=== PATIENT | female | born 1990 | race American Indian/Alaskan Native ===

== ENCOUNTER 2016-11-02 10:37 | Emergency (ER) | payer BC ==
[2016-11-02 11:32] LABS: Basophils % (Auto) 0.4 % (0.0-1.8); Eosinophils % (Auto) 0.9 % (0.0-4.3); Hematocrit 35.2 % (30.3-42.9); Hemoglobin 11.8 gm/dl (10.1-14.3); Mean Corpuscular HGB Conc 33 % (30-34); Mean Corpuscular Hemoglobin 31 pg (28-32); Mean Corpuscular Volume 93 fl (79-97); Platelet Count 231 K/mm3 (140-440); Red Blood Count 3.78 M/mm3 (3.65-5.03); Red Cell Distribution Width 13.4 % (13.2-15.2); White Blood Count 7.9 K/mm3 (4.5-11.0)
[2016-11-02 11:41] LABS: INR 1.05 (0.87-1.13)
[2016-11-02 11:42] LABS: Partial Thromboplastin Time 26.3 Sec. (24.2-36.6)
[2016-11-02 12:09] LABS: Alanine Aminotransferase 6 units/L (7-56); Albumin 3.3 g/dL (3.9-5); Alkaline Phosphatase 42 units/L (35-129); Bilirubin,Direct < 0.2 mg/dL (0-0.2); Total Protein 6.7 g/dL (6.3-8.2)
[2016-11-02 12:12] LABS: Anion Gap 17 mmol/L; Blood Urea Nitrogen 8 mg/dL (7-17); Calcium 8.6 mg/dL (8.4-10.2); Carbon Dioxide 22 mmol/L (22-30); Glucose 75 mg/dL (65-100); Potassium 3.9 mmol/L (3.6-5.0); Sodium 139 mmol/L (137-145)
[2016-11-02 12:33] LABS: Urine Drugs of Abuse Note Disclamer
[2016-11-02 13:07] LABS: Bacteria,Urine 1+ /HPF (Negative); Bilirubin,Urine NEG (Negative); Blood,Urine NEG (Negative); Ketones,Urine NEG (Negative); Leukocyte Esterase,Urine SM (Negative); Mucus,Urine FEW /HPF; Nitrite,Urine NEG (Negative); Protein,Urine <15 mg/dL mg/dL (Negative); Urobilinogen,Urine < 2.0 mg/dL (<2.0)
[2016-11-02] MEDS ORDERED: NACL 0.9% 500 ML 500 ML IV ONE (17:30)
--- NOTE | 2016-11-02 17:30 | Emergency Department Report ---
ED General Adult HPI - General Chief complaint: Syncope Stated complaint: LOW BP Time Seen by Provider: 11/02/16 17:17 Source: patient, RN notes reviewed Mode of arrival: Ambulatory Limitations: No Limitations - History of Present Illness Initial comments: This is a 25-year-old female. She is previously known to me. She is 2 , para 1. Last menstrual period is May 25. She reports that her TISSUE REWINDER is at the [facility]. She does not currently have a high risk specialist. She reports that she was seeing a local high risk group up until last month, but transitioned her care to the [facility]. She does not recall the name of the group that she was seen. Past medical history includes DVT and the right lower extremity, and lupus. She reports that she has not been on Lovenox for 3 years. The patient presents to the ER complaining of syncope. She reports that she was at work today, and eat a full breakfast. She reports that she felt lightheaded, and then passed out. Prior to the incident, she did not have chest pain or shortness of breath, she did not have abdominal pain, and she denied sudden, severe, or thunderclap headache. She reports that she had a "whooshing" sensation in her bilateral upper and lower extremities, and a mild throbbing headache. The headache is not sudden or thunderclap in nature. Did not reach maximal intensity within an hour. It is not the worst headache of her life. It has since resolved. The patient denies irritative and obstructive urinary symptoms, and abdominal pain. -: Sudden Severity scale (0 -10): 0 Consistency: now resolved Improves with: none Worsens with: none Associated Symptoms: syncope - Related Data Home Medications Medication Instructions Recorded Confirmed Last Taken Multivitamin W/Iron, Minerals 11/02/16 Unknown Previous Rx's Medication Instructions Recorded Last Taken Type Doxylamine/Pyridoxine HCl 1 each PO QHS PRN #30 tablet. 11/02/16 Unknown Rx [Tiff Ruiz 10-10 mg Tablet] Vit W-Ca,Fe,FA(<1 mg) 1 each PO QDAY #30 tablet 11/02/16 Unknown Rx [ Vitamins] Allergies Allergy/AdvReac Type Severity Reaction Status Date / Time No Known Allergies Allergy Unverified 09/14/15 11:00 ED Review of Systems ROS: Stated complaint: LOW BP Other details as noted in HPI Constitutional: denies: fever Eyes: denies: vision change ENT: denies: epistaxis Respiratory: denies: cough Cardiovascular: syncope Gastrointestinal: denies: abdominal pain Genitourinary: as per HPI Musculoskeletal: as per HPI Skin: as per HPI Neurological: denies: weakness, confusion, abnormal gait, vertigo Psychiatric: anxiety ED Past Medical Hx - Past Medical History Previous Medical History?: Yes Hx Deep Vein Thrombosis: Yes (Right leg) Additional medical history: Lupus, Vaginal delivery 03-04-2013 - Surgical History Past Surgical History?: No - Social History Smoking Status: Unknown if ever smoked Substance Use Type: None - Medications Home Medications: Home Medications Medication Instructions Recorded Confirmed Last Taken Type Doxylamine/Pyridoxine HCl 1 each PO QHS PRN #30 tablet. 11/02/16 Unknown Rx [Tiff Ruiz 10-10 mg Tablet] Multivitamin W/Iron, Minerals 11/02/16 Unknown History Vit W-Ca,Fe,FA(<1 mg) 1 each PO QDAY #30 tablet 11/02/16 Unknown Rx [ Vitamins] ED Physical Exam - General Limitations: No Limitations General appearance: alert, in no apparent distress - Head Head exam: Present: atraumatic, normocephalic - Eye Eye exam: Present: normal appearance, PERRL, EOMI, other (visual acuity intact to finger counting, color perception, reading at a close distance). Absent: nystagmus - ENT ENT exam: Present: normal exam, normal orophraynx, mucous membranes moist, normal external ear exam - Neck Neck exam: Present: normal inspection, full ROM. Absent: tenderness, meningismus - Respiratory Respiratory exam: Present: normal lung sounds bilaterally. Absent: respiratory distress, wheezes, rales, rhonchi, stridor, chest wall tenderness, accessory muscle use, decreased breath sounds, prolonged expiratory - Cardiovascular Cardiovascular Exam: Present: regular rate, normal rhythm, normal heart sounds. Absent: bradycardia, tachycardia, irregular rhythm, systolic murmur, diastolic murmur, rubs, gallop - GI/Abdominal GI/Abdominal exam: Present: soft, normal bowel sounds, other (gravid uterus is appreciated, and is consistent with dates. It is nontender.). Absent: distended, tenderness, guarding, rebound, rigid, pulsatile mass - Extremities Exam Extremities exam: Present: normal inspection, full ROM, normal capillary refill. Absent: tenderness, pedal edema, joint swelling, calf tenderness - Back Exam Back exam: Present: normal inspection, full ROM. Absent: tenderness, CVA tenderness (R), CVA tenderness (L), muscle spasm, paraspinal tenderness, vertebral tenderness - Neurological Exam Neurological exam: Present: alert, oriented X3, normal gait (normal gait. Normal tandem gait. Negative [id number]-[id number]. Negative Romberg examination. No past pointing.), other (Extraocular movements intact. Tongue midline. No facial droop. Facial sensation intact to light touch in the V1, V2, V3 distribution bilaterally. 5 and 5 strength in 4 extremities.. Sensation is intact to light touch in 4 extremities.). Absent: motor sensory deficit - Psychiatric Psychiatric exam: Present: normal affect, normal mood - Skin Skin exam: Present: warm, dry, intact, normal color. Absent: rash ED Course Vital Signs 11/02/16 11/02/16 11/02/16 11:02 16:29 18:43 Temperature 98.1 F 98.6 F 98.7 F Pulse Rate 84 82 102 H Respiratory 18 18 20 Rate Blood Pressure 105/61 Blood Pressure 96/58 96/52 [Left] O2 Sat by Pulse 100 99 99 Oximetry - Reevaluation(s) Reevaluation #1: 11/02/16 18:29 Differential diagnosis: Dehydration, vagal event, placental bleed, arrhythmia, structural cardiac disease, acute coronary syndrome, pulmonary embolus Assessment and plan: 25-year-old female with lupus, history of DVT, not currently followed by high risk maternal- medicine, with episode of unprovoked syncope. She is afebrile with reassuring vital signs, has a GCS of 15, with an NIH score of 0. Her neurologic examination is unremarkable, and by history, I think venous sinus thrombosis is very unlikely. A d-dimer sent prior to my evaluation, and it comes back elevated. Extensive discussion had with the patient and family regarding various options for working up pulmonary embolus. At this time, the vascular lab is not available to perform a lower extremity DVT, so through informed consent and shared decision making, the patient opted for CT angiogram of the chest versus a V/Q study of the lungs. The risks, benefits, alternatives were discussed with the patient and she verbalized understanding. The patient is low risk by CARMELINA score, and low risk by heart score. Troponins are negative 2, EKG is morphologically within normal limits 2. CT angiogram interpretation is pending, and obstetrics ultrasound is pending. The case was discussed with the section gang worker on-call, Dr. García, who indicated he would be happy to see the patient as an outpatient for follow-up, assuming no pulmonary embolus is identified on her workup today. Reevaluation #2: 11/02/16 19:23 no further episodes of syncope. Patient has remained hemodynamically stable. Skin negative. Ultrasound within normal limits. Patient will be discharged with instructions to follow up with outpatient cardiology, outpatient TISSUE REWINDER and high risk maternal- medicine. ED Medical Decision Making - Lab Data Result diagrams: 11/02/16 11:14 11/02/16 11:14 Vital Signs 11/02/16 11/02/16 11:02 16:29 Temperature 98.1 F 98.6 F Pulse Rate 84 82 Respiratory 18 18 Rate Blood Pressure 105/61 Blood Pressure 96/58 [Left] O2 Sat by Pulse 100 99 Oximetry Lab Results 11/02/16 11/02/16 11/02/16 Range/Units 11:14 11:14 11:14 WBC 7.9 (4.5-11.0) K/mm3 RBC 3.78 (3.65-5.03) M/mm3 Hgb 11.8 (10.1-14.3) gm/dl Hct 35.2 (30.3-42.9) % MCV 93 (79-97) fl MCH 31 (28-32) pg MCHC 33 (30-34) % RDW 13.4 (13.2-15.2) % Plt Count 231 (140-440) K/mm3 Lymph % (Auto) 20.3 (13.4-35.0) % [place] % (Auto) 7.2 (0.0-7.3) % Eos % (Auto) 0.9 (0.0-4.3) % Baso % (Auto) 0.4 (0.0-1.8) % Lymph # 1.6 (1.2-5.4) K/mm3 [place] # 0.6 (0.0-0.8) K/mm3 Eos # 0.1 (0.0-0.4) K/mm3 Baso # 0.0 (0.0-0.1) K/mm3 Seg Neutrophils % 71.2 H (40.0-70.0) % Seg Neutrophils # 5.7 (1.8-7.7) K/mm3 PT 14.2 (12.2-14.9) Sec. INR 1.05 (0.87-1.13) APTT 26.3 (24.2-36.6) Sec. D-Dimer 246.68 H (0-234) ng/mlDDU Sodium 139 (137-145) mmol/L Potassium 3.9 (3.6-5.0) mmol/L Chloride 104.0 (98-107) mmol/L Carbon Dioxide 22 (22-30) mmol/L Anion Gap 17 mmol/L BUN 8 (7-17) mg/dL Creatinine 0.4 L (0.7-1.2) mg/dL Estimated GFR > 60 ml/min BUN/Creatinine Ratio 20.00 % Glucose 75 (65-100) mg/dL Calcium 8.6 (8.4-10.2) mg/dL Total Bilirubin (0.1-1.2) mg/dL Direct Bilirubin (0-0.2) mg/dL AST (5-40) units/L ALT (7-56) units/L Alkaline Phosphatase (35-129) units/L Troponin T < 0.010 (0.00-0.029) ng/mL Total Protein (6.3-8.2) g/dL Albumin (3.9-5) g/dL Albumin/Globulin Ratio % Urine Color (Yellow) Urine Turbidity (Clear) Urine pH (5.0-7.0) Ur Specific [place] (1.003-1.030) Urine Protein (Negative) mg/dL Urine Glucose (UA) (Negative) mg/dL Urine Ketones (Negative) mg/dL Urine Blood (Negative) Urine Nitrite (Negative) Urine Bilirubin (Negative) Urine Urobilinogen (<2.0) mg/dL Ur Leukocyte Esterase (Negative) Urine WBC (Auto) (0.0-6.0) /HPF Urine RBC (Auto) (0.0-6.0) /HPF U Epithel Cells (Auto) (0-13.0) /HPF Urine Bacteria (Auto) (Negative) /HPF Urine Mucus /HPF Urine Opiates Screen Urine Methadone Screen Ur Barbiturates Screen Ur Phencyclidine Scrn Ur Amphetamines Screen U Benzodiazepines Scrn Urine Cocaine Screen U Marijuana (THC) Screen Drugs of Abuse Note 11/02/16 11/02/16 11/02/16 Range/Units 11:14 11:50 11:51 WBC (4.5-11.0) K/mm3 RBC (3.65-5.03) M/mm3 Hgb (10.1-14.3) gm/dl Hct (30.3-42.9) % MCV (79-97) fl MCH (28-32) pg MCHC (30-34) % RDW (13.2-15.2) % Plt Count (140-440) K/mm3 Lymph % (Auto) (13.4-35.0) % [place] % (Auto) (0.0-7.3) % Eos % (Auto) (0.0-4.3) % Baso % (Auto) (0.0-1.8) % Lymph # (1.2-5.4) K/mm3 [place] # (0.0-0.8) K/mm3 Eos # (0.0-0.4) K/mm3 Baso # (0.0-0.1) K/mm3 Seg Neutrophils % (40.0-70.0) % Seg Neutrophils # (1.8-7.7) K/mm3 PT (12.2-14.9) Sec. INR (0.87-1.13) APTT (24.2-36.6) Sec. D-Dimer (0-234) ng/mlDDU Sodium (137-145) mmol/L Potassium (3.6-5.0) mmol/L Chloride (98-107) mmol/L Carbon Dioxide (22-30) mmol/L Anion Gap mmol/L BUN (7-17) mg/dL Creatinine (0.7-1.2) mg/dL Estimated GFR ml/min BUN/Creatinine Ratio % Glucose (65-100) mg/dL Calcium (8.4-10.2) mg/dL Total Bilirubin 0.20 (0.1-1.2) mg/dL Direct Bilirubin < 0.2 (0-0.2) mg/dL AST 9 (5-40) units/L ALT 6 L (7-56) units/L Alkaline Phosphatase 42 (35-129) units/L Troponin T (0.00-0.029) ng/mL Total Protein 6.7 (6.3-8.2) g/dL Albumin 3.3 L (3.9-5) g/dL Albumin/Globulin Ratio 1.0 % Urine Color Yellow (Yellow) Urine Turbidity Cloudy (Clear) Urine pH 7.0 (5.0-7.0) Ur Specific [place] 1.015 (1.003-1.030) Urine Protein <15 mg/dl (Negative) mg/dL Urine Glucose (UA) Neg (Negative) mg/dL Urine Ketones Neg (Negative) mg/dL Urine Blood Neg (Negative) Urine Nitrite Neg (Negative) Urine Bilirubin Neg (Negative) Urine Urobilinogen < 2.0 (<2.0) mg/dL Ur Leukocyte Esterase Sm (Negative) Urine WBC (Auto) 5.0 (0.0-6.0) /HPF Urine RBC (Auto) 4.0 (0.0-6.0) /HPF U Epithel Cells (Auto) 27.0 H (0-13.0) /HPF Urine Bacteria (Auto) 1+ (Negative) /HPF Urine Mucus Few /HPF Urine Opiates Screen Presumptive negative Urine Methadone Screen Presumptive negative Ur Barbiturates Screen Presumptive negative Ur Phencyclidine Scrn Presumptive negative Ur Amphetamines Screen Presumptive negative U Benzodiazepines Scrn Presumptive negative Urine Cocaine Screen Presumptive negative U Marijuana (THC) Screen Presumptive negative Drugs of Abuse Note Disclamer 11/02/16 Range/Units 17:43 WBC (4.5-11.0) K/mm3 RBC (3.65-5.03) M/mm3 Hgb (10.1-14.3) gm/dl Hct (30.3-42.9) % MCV (79-97) fl MCH (28-32) pg MCHC (30-34) % RDW (13.2-15.2) % Plt Count (140-440) K/mm3 Lymph % (Auto) (13.4-35.0) % [place] % (Auto) (0.0-7.3) % Eos % (Auto) (0.0-4.3) % Baso % (Auto) (0.0-1.8) % Lymph # (1.2-5.4) K/mm3 [place] # (0.0-0.8) K/mm3 Eos # (0.0-0.4) K/mm3 Baso # (0.0-0.1) K/mm3 Seg Neutrophils % (40.0-70.0) % Seg Neutrophils # (1.8-7.7) K/mm3 PT (12.2-14.9) Sec. INR (0.87-1.13) APTT (24.2-36.6) Sec. D-Dimer (0-234) ng/mlDDU Sodium (137-145) mmol/L Potassium (3.6-5.0) mmol/L Chloride (98-107) mmol/L Carbon Dioxide (22-30) mmol/L Anion Gap mmol/L BUN (7-17) mg/dL Creatinine (0.7-1.2) mg/dL Estimated GFR ml/min BUN/Creatinine Ratio % Glucose (65-100) mg/dL Calcium (8.4-10.2) mg/dL Total Bilirubin (0.1-1.2) mg/dL Direct Bilirubin (0-0.2) mg/dL AST (5-40) units/L ALT (7-56) units/L Alkaline Phosphatase (35-129) units/L Troponin T < 0.010 (0.00-0.029) ng/mL Total Protein (6.3-8.2) g/dL Albumin (3.9-5) g/dL Albumin/Globulin Ratio % Urine Color (Yellow) Urine Turbidity (Clear) Urine pH (5.0-7.0) Ur Specific [place] (1.003-1.030) Urine Protein (Negative) mg/dL Urine Glucose (UA) (Negative) mg/dL Urine Ketones (Negative) mg/dL Urine Blood (Negative) Urine Nitrite (Negative) Urine Bilirubin (Negative) Urine Urobilinogen (<2.0) mg/dL Ur Leukocyte Esterase (Negative) Urine WBC (Auto) (0.0-6.0) /HPF Urine RBC (Auto) (0.0-6.0) /HPF U Epithel Cells (Auto) (0-13.0) /HPF Urine Bacteria (Auto) (Negative) /HPF Urine Mucus /HPF Urine Opiates Screen Urine Methadone Screen Ur Barbiturates Screen Ur Phencyclidine Scrn Ur Amphetamines Screen U Benzodiazepines Scrn Urine Cocaine Screen U Marijuana (THC) Screen Drugs of Abuse Note - EKG Data -: EKG Interpreted by Me EKG shows normal: sinus rhythm, axis, intervals, QRS complexes, ST-T waves - EKG Data When compared to previous EKG there are: previous EKG unavailable EKG #1 demonstrates normal sinus, 76 bpm, normal intervals, normal axis, persistent juvenile T-wave inversion in V2, not morphologically consistent with STEMI. EKG #2 demonstrates normal sinus, 76 bpm, normal intervals, normal axis, not morphologically consistent with STEMI. epsilon waves are not noted, right bundle branch block is not noted, T-wave inversions V1, V2, V3 consecutively not noted. 11/02/16 18:32 11/02/16 18:37 - Radiology Data Radiology results: pending, report reviewed, image reviewed CT scan of the chest is negative for pulmonary embolus. Ultrasound demonstrates a 23-week-old , no obvious bleeding. Critical care attestation.: If time is entered above; I have spent that time in minutes in the direct care of this critically ill patient, excluding procedure time. ED Disposition Clinical Impression: Syncope, Disposition: DC-01 TO HOME OR SELFCARE Is pt being admited?: No Does the pt Need Aspirin: No Condition: Stable Instructions: Syncope (ED) Additional Instructions: Follow up with the section gang worker, Dr. García, within the next 3-5 days. Contact his office to arrange close outpatient follow-up. I recommended not driving a car or operating motor vehicles until cardiology clears you to do so. Continue current outpatient medications, take the nausea medication as needed, take the vitamins as directed. Follow up with an TISSUE REWINDER doctor and high risk specialist as soon as possible. Dr. Argueta is a local TISSUE REWINDER doctor. For your convenience, I have listed numerous names, phone numbers, addresses of local high risk specialist. Return to the ER right away with new pain, worsened pain, migration of pain, fevers, chills, intractable nausea or vomiting, confusion, inability to tolerate liquid feeds, vaginal bleeding. Prescriptions: Doxylamine/Pyridoxine HCl [Tiff Ruiz 10-10 mg Tablet] 1 each PO QHS PRN #[address] tablet.dr [place]TON Reason: Nausea Vit W-Ca,Fe,FA(<1 mg) [ Vitamins] 1 each PO QDAY #30 tablet Referrals: PRIMARY CARE, [Primary Care Provider] - 3-5 Days ADOLFO PROCTOR MD [Staff Physician] - 3-5 Days ISIDRA NORTH MD [Staff Physician] - 3-5 Days GALLITO VELOZ MD [Staff Physician] - 3-5 Days MADISON CREWS MD [Staff Physician] - 3-5 Days ANDRE POLLACK MD [Staff Physician] - 3-5 Days
[2016-11-02 18:48] VITALS: BP 96/52
--- NOTE | 2016-11-02 18:52 | Cat Scan Report ---
FINAL REPORT EXAM: CT ANGIO CHEST HISTORY: with syncope TECHNIQUE: CT chest CT angiogram with reconstructions PRIORS: None. FINDINGS: There is no evidence of filling defect within the central pulmonary vasculature to suggest the presence of acute pulmonary embolus. No evidence of mediastinal pathologic lymph node enlargement. Residual thymic tissue noted anterior mediastinum. Heart and great vessels are unremarkable. The aorta is normal in caliber. No focal pulmonary infiltrate identified. No pleural fluid collection seen. No acute pulmonary abnormality noted. Visualized portion of the upper abdomen demonstrates no acute change. IMPRESSION: Negative. No CT evidence of acute pulmonary embolus
--- NOTE | 2016-11-02 19:10 | Ultrasound Report ---
FINAL REPORT EXAM: US OB \T\gt; = 14 WEEKS FETUS HISTORY: with syncope TECHNIQUE: Ultrasound obstetrical transabdominal PRIORS: None. FINDINGS: Single live intrauterine gestation is present. Is in the breech presentation. Amniotic fluid volume is adequate. Amniotic fluid index 10.3 centimeters cardiac activity is present with heart rate of 161 beats per minute The placenta is left lateral. It does not appear low lying. Cervical length 3.0 centimeters. biometric measurements were obtained Biparietal diameter 23 weeks 0 days head circumference 23 weeks 0 days abdominal circumference 23 weeks 0 days femur length 24 weeks 2 days Based on today's exam estimated gestational age is 23 weeks 2 days with estimated date of delivery February 27, 2017 Following structures appear unremarkable, stomach, kidneys, urinary bladder, diaphragm, four-chamber view of the heart, three-vessel cord and cord insert Estimated weight today is 601 grams IMPRESSION: Single live intrauterine gestation estimated at 23 weeks 2 days
== END 2016-11-02 20:00 | disposition home or self-care (01) ==
LOC: ED 10:37
DX: O26.892 Other specified pregnancy related conditions, second trimester (principal); R55 Syncope and collapse; Z86.718 Personal history of other venous thrombosis and embolism; Z3A.23 23 weeks gestation of pregnancy
CPT/HCPCS: 36415; 71275; 76805; 80048; 80074; 80307; 81001; 84484; 85025; 85379; 85610; 85730; 93005; 93010; 99284; J7040; Q9967